=== PATIENT | female | born 1940 | race Caucasian/White ===

== ENCOUNTER 2016-08-13 18:49 | Emergency (ER) | payer MEDICARE, OTHER ==
[2016-08-13] MEDS ORDERED: ONDANSETRON HCL 4 MG/2 ML VIAL ONE ×2 (19:15→20:59)
[2016-08-13] MEDS ORDERED: HYDROmorphone HCL 1 MG/ML SYR ONE ×3 (19:15→20:37)
[2016-08-13 19:55] LABS: BASOPHIL# 0.1 X 10^3uL (0.0-0.1); BASOPHILS 0.3 % (0.0-2.0); EOSINOPHILS 0.4 % (0.0-6.0); EOSINOPHILS# 0.1 X 10^3uL (0.0-0.4); HEMATOCRIT 40.8 % (36.0-48.0); HEMOGLOBIN 13.8 g/dL (12.0-16.0); LYMPHOCYTES 8.3 % (20.0-40.0); LYMPHOCYTES# 1.5 X 10^3uL (0.8-3.8); MEAN CELL VOLUME 87.8 fL (84.0-102.0); MEAN CORPUS. HGB CONCENTRATION 33.7 g/dL (32.0-36.0); MEAN CORPUSCULAR HEMOGLOBIN 29.6 pg (29.0-35.0); MEAN PLATELET VOLUME 8.7 fL (7.4-10.4); MONOCYTES 5.9 % (2.0-10.0); MONOCYTES# 1.1 X 10^3uL (0.2-1.0); NEUTROPHILS# 15.6 X 10^3uL (2.6-6.7); PLATELET COUNT 391 X 10^3uL (130-440); RED BLOOD COUNT 4.64 X 10^6uL (4.20-6.10); RED CELL DISTRIBUTION WIDTH 12.2 % (11.5-14.5); WHITE BLOOD COUNT 18.4 X 10^3uL (3.9-10.7)
[2016-08-13 20:02] LABS: A/G RATIO 1.2; ALBUMIN 3.9 g/dL (3.5-5.0); ALKALINE PHOSPHATASE 185 U/L (38-126); ALT 204 U/L (9-52); AST 364 U/L (14-36); BLOOD UREA NITROGEN 17 mg/dL (7-17); CALCIUM 8.8 mg/dL (8.4-10.2); CHLORIDE 103 mmol/L (98-107); CREATININE 0.7 mg/dL (0.5-1.0); EST GLOMERULAR FILTRATION RATE > 60 mL/min; GLUCOSE 149 mg/dL (70-100); POTASSIUM 3.5 mmol/L (3.5-5.1); SODIUM 139 mmol/L (137-145); TOTAL PROTEIN 7.2 g/dL (6.3-8.2)
[2016-08-13 20:12] LABS: NEUTROPHILS 85.1 % (54.0-75.0)
[2016-08-13 20:14] LABS: TROPONIN I < 0.012 ng/mL (0.00-0.034)
--- NOTE | 2016-08-13 21:31 | ER PHYSICIAN DOCUMENTATION ---
Physician Documentation [facility] Name:Marzena Cosby Age:76 yrs Sex:Female :1940 Arrival Date:08/13/2016 Time:18:49 Bed4 Private MD: Deo Ward Disposition: 08/13 21:18 Chart complete. tl1 Disposition: 08/13/16 20:25 Transfer ordered to [facility]. Diagnosis is Pancreatitis, Acute. - Reason for transfer: Specialty. - Accepting physician is Dr Willy Salcido. - Condition is Fair. - Problem is new. - Symptoms have improved. COBRA Form completed? Yes Transfer - Mode of Transportation Ambulance HPI: 07:00 This 76 yrs old Female presents to ER via Wheelchair with complaints of Back tl1 Pain, Nausea/Vomiting. 07:00 The patient presents with pain that is acute. tl1 20:04 The patient has not experienced similar symptoms in the past. Vague hoistorian, tl1 probably related to severe pain. She was well until about 3-4 hours ago when she had the fairly abrupt onset of epigastric pain which, after arriving here, began radiating to the radiating to the RUQ and lower T spine area. She has been nauseated and vomited once at home. Denies f/c/s. No prior abdominal surgeries. No urinary symptoms or change in bowel habits. No melena, hematochezia or hematemesis. . Historical: - Allergies: SULFA (SULFONAMIDES); - Home Meds: 1. Atenolol Oral 2. atorvastatin oral - PMHx: Hypertension; hyperlipidemia; - PSHx: ankle; - Tetanus: < 10 years. - Ebola Screening: : Patient negative for fever greater than or equal to 101.5 degrees Fahrenheit, and additional compatible Ebola Virus Disease symptoms. Patient denies exposure to infectious person. Patient denies travel to an Ebola-affected area in the 21 days before illness onset. No symptoms or risks identified at this time. . - Immunization history: Flu Vaccine < 1 year. - Social history: Smoking status: Patient states was never smoker of tobacco. Patient uses alcohol only on a social basis. ROS: 20:12 Back: Positive for pain at rest. tl1 20:12 All other systems are negative. Exam: 20:14 Constitutional: The patient appears alert, awake, well developed, obese, in obvious tl1 distress, moderately distressed, obviously ill, in obvious pain, pale, uncomfortable. 20:16 Head/face: Exam is negative for acute changes. tl1 20:16 ENT: Mouth: Oral mucosa: pink and intact, dry. 20:16 Neck: ROM/movement: is normal. 20:16 Cardiovascular: Rate: normal, Rhythm: regular, Heart sounds: normal, Edema: is not appreciated, JVD: is not appreciated. 20:16 Respiratory: Respirations: normal, Breath sounds: are normal. 20:16 Abdomen/GI: Inspection: abdomen appears normal, Bowel sounds: diminished, Palpation: soft, moderate abdominal tenderness, in the epigastric area, Liver: is firm, Hernia: not appreciated. 20:16 Back: pain, that is moderate, ROM is painless, CVA tenderness, is absent, vertebral tenderness, is not appreciated. 20:16 Musculoskeletal/extremity: Exam is negative for acute changes. 20:16 Skin: pale. 20:16 Neuro: Exam negative for Orientation: is normal, Mentation: is normal, Memory: is normal, Motor: moves all fours, Gait: not tested. Vital Signs: 19:17 BP 169 / 72; Pulse 76; Resp 20; Pulse Ox 91% on R/A; Weight 97.07 kg; Height 5 ft. 5 lb in. (165.10 cm); Pain 10/10; 19:31 Temp 96.1; lb 20:05 BP 135 / 73; Pulse 84; Resp 20; Pain 8/10; lb 20:40 BP 131 / 63; Pulse 80; Resp 18; Pulse Ox 97% on 2 lpm NC; Pain 7/10; lb 19:17 Body Mass Index 35.61 (97.07 kg, 165.10 cm) lb MDM: 19:25 Patient medically screened. tl1 19:40 Differential diagnosis: Abdominal Aortic Aneurysm Cholelithiasis chronic back pain, tl1 Epidural or Perispinal Abcess Fatigue Obesity Osteomyelitis Pancreatic Carcinoma Peptic Ulcer Perforated Ulcer Pyelonephritis Renal Infarction ruptured disc, Ureterolithiasis pancreatitis, ischemic bowel. Data reviewed: vital signs, nurses notes, and as a result, I will. Test interpretation: by ED physician or midlevel provider: ECG. Counseling: I had a detailed discussion with the patient and/or guardian regarding: the historical points, exam findings, and any diagnostic results supporting the discharge/admit diagnosis, lab results, radiology results, the need for further work-up and treatment in the hospital. Medication response: The patient's symptoms have improved, Dilaudid. Response to treatment: There is no appreciated change of the patient's symptoms at this time, the patient's symptoms have markedly improved after treatment, and as a result, I will admit patient. 19:47 EKG attached sc1 19:48 ECG:. tl1 21:15 Physician consultation: Willy Barneyborne was called at 20:20, was contacted at 20:50, tl1 regarding admission, patient's condition, and will see patient in inpatient room, AT [facility]. after a discussion of the case, a recommendation for transfer for higher level of care is made. ED course: Pain somewhat controlled with a total of 2 mg of diluadid and zofran. 21:43 ED course: CT of the abdomen and pelvis with IV contrast was consistent with tl1 pancreatitis. No pseudocyst seen. Possible small gallstones in the gallbladder. No apparent biliary dilatation.. 08/13 20:04 Order name: COMPREHENSIVE METABOLIC PANEL; Complete Time: 21:43 EDMS 08/13 20:25 Interpretation: Normal Except: CARBON DIOXIDE 21; GLUCOSE 149; ALT 204; ALKALINE tl1 PHOSPHATASE 185; AST 364. 08/13 20:13 Order name: CBC AUTO DIF, MDIF/RMOR IF IND; Complete Time: 21:43 EDMS 08/13 20:26 Interpretation: WHITE BLOOD COUNT 18.4; HEMOGLOBIN 13.8; HEMATOCRIT 40.8; PLATELET tl1 COUNT 391. 08/13 20:16 Order name: TROPONIN I; Complete Time: 21:43 EDMS 08/13 20:26 Interpretation: Normal: TROPONIN I < 0.012. tl1 08/13 20:31 Order name: DDIMER; Complete Time: 21:43 EDMS 08/13 20:45 Interpretation: Normal: DDIMER 457. tl1 08/13 21:10 Order name: LACTATE; Complete Time: 21:43 EDMS 08/13 21:43 Interpretation: Normal: LACTATE 1.3. tl1 08/13 19:03 Order name: Iv Saline Lock; Complete Time: 19:15 lb 08/13 19:37 Order name: EKG - 12 Lead; Complete Time: 20:01 tl1 08/13 21:43 Interpretation: SEE NOTE. 1 08/13 20:28 Order name: Oxygen; Complete Time: :28 [facility] [place] EC:40 Rate is 80 beats/min. Rhythm is regular, Sinus arrythmia with No ectopy. QRS [place] is tl1 Normal. HI interval is normal at 214 msec. QRS interval is normal at 81 msec. QT interval is normal at 435 msec. No Q waves. T waves are Normal. No ST changes noted. Clinical impression: Sinus arrhythmia with boredrline LAD ( -22), prolonged QTc (502) and low voltages in the precordial leads. Interpreted by me. Reviewed by me. Dispensed Medications: 19:15 Drug: Dilaudid 0.5 mg; Route: IVP; Site: left antecubital; lb 19:39 Follow up: Response: Pain is unchanged, physician notified lb 19:15 Drug: Zofran 4 mg; Route: IVP; Infused Over: 2 mins; Site: left antecubital; lb 19:39 Follow up: Response: Nausea is decreased lb 19:39 Drug: NS 0.9% 1000 ml; Route: IV; Rate: bolus; Site: left antecubital; lb 21:07 Follow up: IV Status: Infusing continued upon transfer; IV Intake: 300ml lb 19:45 Drug: Dilaudid 0.5 mg; Route: IVP; Site: left antecubital; lb 21:08 Follow up: Response: Pain is unchanged, physician notified lb 20:29 Drug: Dilaudid 1 mg; Route: IVP; Site: left antecubital; lb 20:35 Follow up: Response: Pain is decreased lb 20:52 Drug: Zofran 4 mg; Route: IVP; Infused Over: 2 mins; Site: left antecubital; lb 21:07 Follow up: Response: Nausea is decreased lb Signatures: Lilli Adamson RN RN va1 Deo Lassiter MD MD 1 Angélica Bravo lb
--- NOTE | 2016-08-13 21:31 | ER NURSING DOCUMENTATION ---
Nurse's Notes [facility] Name:Marzena Cosby Age:76 yrs Sex:Female :1940 Arrival Date:08/13/2016 Time:18:49 Bed4 Private MD: Diagnosis:Pancreatitis, Acute Presentation: 08/13 19:00 Care prior to arrival: Medication(s) given: aleve. lb 19:02 Presenting complaint: Patient states: mid back pain for 2 hrs 04/12. unable to find lb position of comfort. seen by chirppractor today with no relief of sx. Transition of care: Home. Notified ED Physician of Dr. Lassiter notified. 19:02 Acuity: JAMSHID 3 lb 19:02 Method Of Arrival: Wheelchair lb Triage Assessment: 19:16 General: Appears uncomfortable, Behavior is anxious, pleasant. Pain: Complains of pain lb in left subscapular area, right subscapular area, lumbar area, left mid back and right mid back Pain radiates to diaphragm Pain currently is 10 out of 10 on a pain scale. Musculoskeletal: Circulation, motion, and sensation intact Capillary refill < 3 seconds. 20:07 Derm: Skin is intact, Skin is clammy, Skin is pale, Skin temperature is cool. lb Historical: - Allergies: SULFA (SULFONAMIDES); - Home Meds: 1. Atenolol Oral 2. atorvastatin oral - PMHx: Hypertension; hyperlipidemia; - PSHx: ankle; - Tetanus: < 10 years. - Ebola Screening: : Patient negative for fever greater than or equal to 101.5 degrees Fahrenheit, and additional compatible Ebola Virus Disease symptoms. Patient denies exposure to infectious person. Patient denies travel to an Ebola-affected area in the 21 days before illness onset. No symptoms or risks identified at this time. . - Immunization history: Flu Vaccine < 1 year. - Social history: Smoking status: Patient states was never smoker of tobacco. Patient uses alcohol only on a social basis. Screenin:18 Infectious Disease Risk None. Abuse screen: Denies threats or abuse. Denies injuries lb from another. Nutritional screening: No deficits noted. Assessment: 19:18 See Triage Assessment done by same RN. Neuro: No deficits noted. lb 20:41 GI: Abdomen is distended, Bowel sounds present X 4 quads. lb 20:41 Derm: No deficits noted. lb Vital Signs: 19:17 BP 169 / 72; Pulse 76; Resp 20; Pulse Ox 91% on R/A; Weight 97.07 kg; Height 5 ft. 5 lb in. (165.10 cm); Pain 10/10; 19:31 Temp 96.1; lb 20:05 BP 135 / 73; Pulse 84; Resp 20; Pain 8/10; lb 20:40 BP 131 / 63; Pulse 80; Resp 18; Pulse Ox 97% on 2 lpm NC; Pain 7/10; lb 19:17 Body Mass Index 35.61 (97.07 kg, 165.10 cm) lb ED Course: 18:52 Patient arrived in ED. ma1 19:02 Angélica Bravo is Primary Nurse. lb 19:03 Triage completed. lb 19:18 Valuables Remains with patient Patient has correct armband on for positive lb identification. Placed in gown. Bed in low position. 19:19 Inserted peripheral IV: 22 gauge in left antecubital area. lb 19:25 Deo Lassiter MD is Attending Physician. tl1 19:47 EKG attached sc1 20:01 Labs drawn. (by ED staff). EKG done. (by ED staff). lb 20:[address] mr 20:28 Pulse ox on. NIBP on. sc1 20:29 Oxygen Oxygen administration via nasal cannula @ 2L/min. sc1 20:31 Patient moved back from radiology. mr Administered Medications: 19:15 Drug: Dilaudid 0.5 mg; Route: IVP; Site: left antecubital; lb 19:39 Follow up: Response: Pain is unchanged, physician notified lb 19:15 Drug: Zofran 4 mg; Route: IVP; Infused Over: 2 mins; Site: left antecubital; lb 19:39 Follow up: Response: Nausea is decreased lb 19:39 Drug: NS 0.9% 1000 ml; Route: IV; Rate: bolus; Site: left antecubital; lb 21:07 Follow up: IV Status: Infusing continued upon transfer; IV Intake: 300ml lb 19:45 Drug: Dilaudid 0.5 mg; Route: IVP; Site: left antecubital; lb 21:08 Follow up: Response: Pain is unchanged, physician notified lb 20:29 Drug: Dilaudid 1 mg; Route: IVP; Site: left antecubital; lb 20:35 Follow up: Response: Pain is decreased lb 20:52 Drug: Zofran 4 mg; Route: IVP; Infused Over: 2 mins; Site: left antecubital; lb 21:07 Follow up: Response: Nausea is decreased lb Intake: 21:07 IV: 300ml; Total: 300ml. lb Outcome: 20:25 ER care complete, transfer ordered by . tl1 20:29 Transferred: lb 21:28 Transferred: Patient will be transferred to: [facility]. Facility lb Acceptance Time: August 13, 2016 at 20:30 Patient's face sheet was faxed to accepting facility. Face Sheet included patient's name, address, age, gender, contact information and insurance information. Patient will be transported by: [facility] ground. Report called to: Michelle DUENAS at [facility] Nurse and Physician Charting and Notes were sent to Accepting Facility. All tests and/or procedures with results, if applicable, were sent to accepting facility. 21:28 Condition: stable 21:28 Report given to Michelle DUENAS at [facility] 21:28 Instructed on need for transfer 21:30 Patient left the ED. lb Signatures: Lilli Adamson, RN RN [email or web address] Deo Lassiter MD MD tl1 Angélica Bravo Melissa dc1 Willy Copeland mr
[2016-08-13 21:37] LABS: LIPASE 34344 U/L (23-300)
--- NOTE | 2016-08-15 09:02 | CT REPORT ---
CT ABDOMEN AND PELVIS TECHNIQUE: CT of the abdomen and pelvis was performed after the uneventful administration of 100 mL of IsoView 370. No gastrointestinal contrast was utilized which limits the evaluation of bowel. FINDINGS: The visualized portions of the lung bases demonstrate scattered atelectasis. No confluent infiltrate. No pneumothorax or pleural effusion. The visualized portion of the heart is unremarkable. No pericardial effusion. The liver is unremarkable. The gallbladder is well distended. There appears to be sub 5 mm densities in the dependent portion of the gallbladder, suspicious for small stones. The spleen is unremarkable. The pancreas is mildly enlarged. There is hazy, heterogeneous opacification of the pancreas. There is peripancreatic edema and fat stranding. There is a small amount of free fluid within the gallbladder fossa and adjacent to the tail of the pancreas. No phlegmon. Splenic vein and celiac axis including the splenic and hepatic arteries enhance normally. No evidence of phlegmon. The pancreatic duct is not dilated. There is no adrenal mass. The configuration and enhancement of the kidneys are within normal limits. The abdominal aorta and IVC are unremarkable for age. There is no periaortic pathologic adenopathy. There is no mesenteric adenopathy. There is no mesenteric opacification outside the pancreas. There is a nonobstructed bowel gas pattern with a large volume of retained stool including a large volume in the rectal vault. No free air or pneumatosis. Sagittal reconstructions demonstrate multilevel degenerative disk disease involving all levels of the lower thoracic spine and all levels of the lumbar spine except L3-L4. The pelvis demonstrates no mass or adenopathy. No free fluid. The uterus is atrophic consistent with age. The bladder is unremarkable. IMPRESSION: 1. Pancreatitis. 2. Probable cholelithiasis. 3. Biliary ducts are not dilated. The findings were reviewed with Dr. Deo Lassiter at 8:55 p.m. [facility]
== END 2016-08-13 21:31 | disposition short-term general hospital (02) ==
LOC: ER 18:49
DX: K85.90 Acute pancreatitis without necrosis or infection, unspecified (principal); R11.2 Nausea with vomiting, unspecified; M54.89 Other dorsalgia; E86.0 Dehydration; I49.8 Other specified cardiac arrhythmias; I10 Essential (primary) hypertension; E78.5 Hyperlipidemia, unspecified; Z79.899 Other long term (current) drug therapy
CPT/HCPCS: 74177; 80053; 83605; 83690; 84484; 85025; 85379; 93005; 96361; 96374; 96375; 96376; 99284; 99285; A0425; A0427; J1170; J2405